=== PATIENT | female | born 1965 | race Caucasian/White ===

== ENCOUNTER 2018-03-03 15:48 | Outpatient (CLI) | payer OTHER ==
--- NOTE | 2018-03-03 17:28 | MRI ---
MRI OF THE LEFT KNEE WITHOUT CONTRAST 03/03/18 INDICATION: Primary osteoarthrosis of the left knee. TECHNIQUE: Noncontrast MRI images were obtained of the left knee. FINDINGS: There is severe medial femorotibial chondrosis with marginal osteophytosis. There is small marginal o steophytes affecting all major compartments. There is full thickness articular fissuring involving th e medial patellar facet measuring approximately 4 mm with associated subchondral edema. The ACL, PCL, MCL and LCLC are intact. Extensor mechanism is intact. There is some central free edge fraying invol ving the body of the lateral meniscus. There is partial extrusion of the medial meniscus without evid ence of discrete tear. There is some intrinsic degenerative signal seen involving the posterior body and posterior horn of the medial meniscus. There is a moderate sized Mosquera's cyst. IMPRESSION: 1. Moderate osteoarthrosis of the left knee. 2. Central free edge fraying of the body of the lateral meniscus. 3. Intrasubstance degenerative signal of the medial meniscus without evidence of discrete tear. 4. The ACL, PCL, MCL and LCLC and extensor mechanism are intact. POS: [facility]
== END 2018-03-03 15:49 | disposition home or self-care (01) ==
LOC: TBSIIMAG 15:48
PROVIDERS: ATTEND Orthopaedic Surgery
DX: M17.12 Unilateral primary osteoarthritis, left knee (principal)